=== PATIENT | female | born 1985 | race Caucasian/White ===

== ENCOUNTER → 2021-04-20 11:42 | Outpatient (BNVA) | payer SELFPAY | PROVIDERS: PCP Pediatrics | DX: Z02.1 Encounter for pre-employment examination (principal) ==

== ENCOUNTER → 2022-11-22 14:06 | Outpatient (BNVA) | payer SELFPAY | PROVIDERS: PCP Pediatrics | DX: Z04.9 Encounter for examination and observation for unspecified reason (principal) ==

== ENCOUNTER → 2023-11-04 09:31 | Outpatient (BNVA) | payer SELFPAY | PROVIDERS: PCP Pediatrics | DX: Z02.83 Encounter for blood-alcohol and blood-drug test (principal) ==